=== PATIENT | female | born 1950 | race Caucasian/White ===

== ENCOUNTER 2024-03-26 18:13 | Inpatient (IN) | payer MEDICAID, MEDICARE ==
[~2024-03-26] VITALS: Ht 160 cm; Wt 65.8 kg
[~2024-03-26 18:13] MED LIST: BISA5TAB10 PO; CLOZ100T PO; IPRA0.2S18 IH; LEVA0.6320 IH; LEVO112T5 GT
[2024-03-26 20:25] LABS: APPEARANCE,URINE Clear (CLEAR); BILIRUBIN,URINE Negative (NEGATIVE); BLOOD, URINE Trace-intact Ery/uL (NEGATIVE); COLOR,URINE YELLOW (YELLOW); KETONES,URINE Negative (NEGATIVE); LEUKOCYTE ESTERASE ,URINE Negative (NEGATIVE); NITRITE, URINE Negative (NEGATIVE); PROTEIN,URINE Negative (NEGATIVE); UGLUCOSE Negative (NEGATIVE); UROBILINOGEN,URINE 0.2 EU/dL (0.2)
[2024-03-26 20:32] LABS: BASOPHILS # (AUTO) 0.1 K/uL (0.0-0.2); BASOPHILS % (AUTO) 0.8 % (0.0-2.0); EOSINOPHILS # (AUTO) 0.1 K/uL (0.0-0.7); EOSINOPHILS % (AUTO) 1.1 % (0.0-6.0); HEMATOCRIT 45 % (33-45); HEMOGLOBIN 15.2 g/dL (11.5-14.8); LYMPHOCYTES # (AUTO) 2.9 K/uL (0.8-4.8); MEAN CORPUSCULAR HEMOGLOBIN 33 PG (26.0-33.0); MEAN CORPUSCULAR HGB CONC 34 g/dl (31.0-36.0); MEAN CORPUSCULAR VOLUME 96 fL (82-100); MONOCYTES # (AUTO) 0.7 K/uL (0.1-1.30); NEUTROPHILS # (AUTO) 3.9 K/uL (1.8-8.9); NEUTROPHILS % (AUTO) 51.1 % (43.0-81.0); PLATELET COUNT (AUTO) 219 K/uL (150-450); RED BLOOD CELL COUNT(AUTO) 4.67 MIL/uL (4.0-5.2); RED CELL DISTRIBUTION WIDTH 13.1 % (11.5-15.0); WHITE BLOOD COUNT (AUTO) 7.6 K/uL (4.3-11.0)
[2024-03-26 20:39] LABS: AMPHETAMINE, URINE NEGATIVE (NEGATIVE); BARBITURATE, URINE NEGATIVE (NEGATIVE); BENZODIAZEPINE, URINE NEGATIVE (NEGATIVE); CANNABINOID, URINE NEGATIVE (NEGATIVE); COCCAINE, URINE NEGATIVE (NEGATIVE); OPIATE, URINE NEGATIVE (NEGATIVE); PHENCYCLIDINE SCREEN,URINE NEGATIVE (NEGATIVE)
[2024-03-26 20:40] LABS: CALCIUM, SERUM 9.3 mg/dL (8.5-10.1); CARBON DIOXIDE 27 mmol/L (21-32); CHLORIDE 110 mmol/L (98-107); CREATININE 0.7 mg/dL (0.6-1.3); GLUCOSE 101 mg/dL (74-106); POTASSIUM 4.2 mmol/L (3.5-5.1); SODIUM SERUM 142 mmol/L (136-145); UREA NITROGEN, BLOOD 22 mg/dL (7-18)
[2024-03-26 20:46] LABS: ALANINE AMINOTRANSFERASE 10 U/L (12-78); ALCOHOL, BLOOD < 3 mg/dL (0-10); ALKALINE PHOSPHATASE 68 U/L (46-116); ASPARTATE AMINOTRANSFERASE 10 U/L (15-37); BILIRUBIN,DIRECT 0.1 mg/dL (0.0-0.2); BILIRUBIN,TOTAL 0.3 mg/dL (0.2-1.0); SALICYLATE 2.5 mg/dL (2.8-20.0); TOTAL PROTEIN, SERUM 6.8 g/dL (6.4-8.2)
[2024-03-26 20:46] LABS: ADD URINE CULTURE NO; BACTERIA,URINE Few /HPF (None Seen); SQUAMOUS EPITHELIAL CELL,UR Few /HPF (None Seen); WBC,URINE 0-2 /HPF (0-3)
[2024-03-26 20:47] LABS: ACETAMINOPHEN <10 ug/ml (10-30)
[2024-03-26] MEDS ORDERED: LEVO175T7 PO (23:44)
[2024-03-26] MEDS ORDERED: DIVA500T2 PO (23:44)
[2024-03-26] MEDS ORDERED: OLAN10TA3 PO (23:44)
[2024-03-26] MEDS ORDERED: GABA-532 PO (23:44)
[2024-03-26] MEDS ORDERED: AMLO10TA4 PO (23:44)
[2024-03-26] MEDS ORDERED: PANT40TA49 PO (23:44)
[2024-03-26] MEDS ORDERED: QUET25TA PO (23:44)
[2024-03-26] MEDS ORDERED: LORA-259 PO (23:44)
[2024-03-27] MEDS ORDERED: MAG HYDROX/AL HYDROX/SIMETH 30 ML UDC PO PRN (01:30)
[2024-03-27] MEDS ORDERED: MAGNESIUM HYDROXIDE 30 ML UDC PO PRN (01:30)
[2024-03-27] MEDS ORDERED: Z GUARD REMEDY 4 OZ OINT TP PRN ×2 (01:30→06:00)
[2024-03-27] MEDS ORDERED: ZOLPIDEM TARTRATE 5 MG TABLET PO PRN ×2 (01:30)
[2024-03-27] MEDS: BLOOD SUGAR DIAGNOSTIC 1 EACH STRIP IN ONE (01:42)
[2024-03-27 01:58] VITALS: BP 125/77; TEMP 98; O2SAT 98
[2024-03-27 08:00] VITALS: BP 109/89; TEMP 97.8; O2SAT 96
[2024-03-27] MEDS: Z GUARD REMEDY 4 OZ OINT TP SCH (08:23)
[2024-03-27] MEDS ORDERED: NA P133E RC (08:28)
[2024-03-27] MEDS ORDERED: ACET325T53 PO (08:28)
[2024-03-27] MEDS ORDERED: MAGN400O6 PO (08:28)
[2024-03-27] MEDS ORDERED: BISA10SU11 RC (08:28)
[2024-03-27] MEDS ORDERED: TEMAZEPAM 7.5 MG CAPSULE PO PRN (09:30)
[2024-03-27] MEDS: clonazePAM 0.5 MG TABLET PO SCH (12:21)
[2024-03-27] MEDS: DIVALPROEX SODIUM 250 MG TABLET.DR PO SCH (13:07)
[2024-03-27 16:00] VITALS: BP_SYST 102; BP_SYST 124; BP_DIAS 71; BP_DIAS 77; TEMP 97.8; TEMP 98.7; O2SAT 97; O2SAT 98
[2024-03-27 20:22] VITALS: BP 124/68; TEMP 98.3; O2SAT 97
[2024-03-27] MEDS: risperiDONE 1 MG TABLET PO SCH (20:52)
[2024-03-28 08:00] VITALS: BP 100/79; TEMP 97.9; O2SAT 100
[2024-03-28] MEDS: AMLODIPINE BESYLATE 10 MG TABLET PO SCH (08:35)
[2024-03-28] MEDS: GABAPENTIN 100 MG CAPSULE PO SCH (08:37)
[2024-03-28] MEDS: LEVOTHYROXINE SODIUM 175 MCG TABLET PO SCH (09:27)
[2024-03-28 15:45] VITALS: BP 117/76; TEMP 97.8; O2SAT 98
[2024-03-28 20:31] VITALS: BP 111/71; TEMP 97.9; O2SAT 95
[2024-03-29 08:00] VITALS: BP 112/59; TEMP 98; O2SAT 97
[2024-03-29 12:55] LABS: BASOPHILS % (AUTO) 0.3 % (0.0-2.0); EOSINOPHILS # (AUTO) 0.1 K/uL (0.0-0.7); EOSINOPHILS % (AUTO) 1.2 % (0.0-6.0); HEMATOCRIT 41 % (33-45); HEMOGLOBIN 13.9 g/dL (11.5-14.8); LYMPHOCYTES % (AUTO) 36.7 % (20.0-44.0); MEAN CORPUSCULAR HEMOGLOBIN 32 PG (26.0-33.0); MEAN CORPUSCULAR HGB CONC 34 g/dl (31.0-36.0); MEAN CORPUSCULAR VOLUME 95 fL (82-100); MONOCYTES # (AUTO) 0.7 K/uL (0.1-1.30); MONOCYTES % (AUTO) 12.8 % (2.0-12.0); NEUTROPHILS # (AUTO) 2.7 K/uL (1.8-8.9); PLATELET COUNT (AUTO) 194 K/uL (150-450); RED BLOOD CELL COUNT(AUTO) 4.28 MIL/uL (4.0-5.2); RED CELL DISTRIBUTION WIDTH 13.2 % (11.5-15.0); WHITE BLOOD COUNT (AUTO) 5.5 K/uL (4.3-11.0)
[2024-03-29 13:33] LABS: ALANINE AMINOTRANSFERASE 12 U/L (12-78); ALBUMIN 2.5 g/dL (3.4-5.0); ALKALINE PHOSPHATASE 65 U/L (46-116); ASPARTATE AMINOTRANSFERASE 9 U/L (15-37); BILIRUBIN,TOTAL 0.3 mg/dL (0.2-1.0); CALCIUM, SERUM 8.6 mg/dL (8.5-10.1); CARBON DIOXIDE 26 mmol/L (21-32); CHLORIDE 110 mmol/L (98-107); CHOLESTEROL 152 mg/dL (<200); CREATININE 0.5 mg/dL (0.6-1.3); GLUCOSE 107 mg/dL (74-106); HDL CHOLESTEROL 40 mg/dL (40-60); LDL 78 mg/dL (0-99); POTASSIUM 4.2 mmol/L (3.5-5.1); SODIUM SERUM 143 mmol/L (136-145); TOTAL PROTEIN, SERUM 5.9 g/dL (6.4-8.2); TRIGLYCERIDES 143 mg/dL (30-150); UREA NITROGEN, BLOOD 18 mg/dL (7-18)
[2024-03-29 16:00] VITALS: BP 106/65; TEMP 98.1; O2SAT 98
[2024-03-29 21:07] VITALS: BP 96/74; TEMP 98.1; O2SAT 96
[2024-03-29] MEDS: risperiDONE 1 MG TABLET PO SCH (21:43)
[2024-03-30 08:00] VITALS: BP 113/74; TEMP 98.7; O2SAT 96
[2024-03-30 16:00] VITALS: BP 110/65; TEMP 98.7; O2SAT 97
[2024-03-30 21:00] VITALS: BP 110/78; TEMP 98; O2SAT 98
[2024-03-31 08:00] VITALS: BP 115/74; TEMP 98.1; O2SAT 98
[2024-03-31 20:00] VITALS: BP 99/66; TEMP 98.3; O2SAT 95
[2024-03-31] MEDS: risperiDONE 1 MG TABLET PO SCH (21:33)
[2024-03-31] MEDS: DIVALPROEX SODIUM 250 MG TABLET.DR PO SCH (21:33)
[2024-04-01 08:00] VITALS: BP 119/92; TEMP 97.8; O2SAT 96
[2024-04-01] MEDS: DIVALPROEX SODIUM 250 MG TABLET.DR PO SCH (08:50)
[2024-04-01 16:00] VITALS: BP 121/96; TEMP 97.8; O2SAT 96
[2024-04-01 16:16] VITALS: BP 119/92; TEMP 97.8; O2SAT 96
[2024-04-01 16:51] VITALS: BP 119/92; TEMP 97.8; O2SAT 96
[2024-04-01 20:00] VITALS: BP 115/86; TEMP 98.2; O2SAT 96
[2024-04-02 08:19] VITALS: BP 102/66; TEMP 97.8; O2SAT 96
[2024-04-02 16:18] VITALS: BP_SYST 105; BP_SYST 89; BP_DIAS 66; BP_DIAS 80; TEMP 98.2; O2SAT 100
[2024-04-02 20:00] VITALS: BP 111/89; TEMP 98.4; O2SAT 100
[2024-04-03 08:00] VITALS: BP 132/72; TEMP 97.7; O2SAT 99
[2024-04-03 16:00] VITALS: BP 94/56; TEMP 97.9; O2SAT 98
[2024-04-03 20:39] VITALS: BP 107/73; TEMP 97.9; O2SAT 98
[2024-04-03] MEDS: risperiDONE 1 MG TABLET PO SCH (21:30)
[2024-04-04 08:00] VITALS: BP 146/67; TEMP 97.9; O2SAT 96
[2024-04-04] MEDS: ACETAMINOPHEN 325 MG TABLET PO PRN (15:01)
[2024-04-04 16:04] VITALS: BP 124/72; TEMP 97.8; O2SAT 97
[2024-04-04 20:21] VITALS: BP 117/68; TEMP 98.1; O2SAT 100
[2024-04-05 08:00] VITALS: BP 133/79; TEMP 97.7; O2SAT 98
[2024-04-05 16:00] VITALS: BP 102/76; TEMP 97.9; O2SAT 98
[2024-04-05] MEDS: DIVALPROEX SODIUM 250 MG TABLET.DR PO SCH (20:19)
[2024-04-05 21:16] VITALS: BP 118/90; TEMP 97.8; O2SAT 98
[2024-04-06 08:00] VITALS: BP 131/90; TEMP 98.1; O2SAT 98
[2024-04-06 16:00] VITALS: BP 113/74; TEMP 98.7; O2SAT 97
[2024-04-06] MEDS: clonazePAM 0.5 MG TABLET PO SCH (20:01)
[2024-04-06] MEDS: risperiDONE 1 MG TABLET PO SCH (20:41)
[2024-04-06 21:08] VITALS: BP 135/97; TEMP 98.7; O2SAT 97
[2024-04-07 08:00] VITALS: BP 120/89; TEMP 98; O2SAT 96
[2024-04-07] MEDS: risperiDONE 1 MG TABLET PO SCH (08:18)
[2024-04-07 16:00] VITALS: BP 102/79; TEMP 98.7; O2SAT 100
[2024-04-07 20:27] VITALS: BP 110/79; TEMP 98.5; O2SAT 96
[2024-04-08 08:00] VITALS: BP 103/73; TEMP 97.6; O2SAT 100
[2024-04-08] MEDS: risperiDONE 1 MG TABLET PO SCH (09:11)
[2024-04-08 15:53] VITALS: BP 108/74; TEMP 98; O2SAT 98
[2024-04-08 20:00] VITALS: BP 138/68; TEMP 98.3; O2SAT 99
[2024-04-09 08:00] VITALS: BP 116/78; TEMP 97.9; O2SAT 95
[2024-04-09 08:34] VITALS: BP 116/78
== END 2024-04-09 13:15 | DRG 885 ==
LOC: ER 18:13 → GPS 23:35
PROVIDERS: ADMIT Psychiatry & Neurology Psychiatry; ATTEND Internal Medicine
DX: F25.9 Schizoaffective disorder, unspecified (principal); E44.0 Moderate protein-calorie malnutrition; G93.40 Encephalopathy, unspecified; F29 Unspecified psychosis not due to a substance or known physiological condition; N18.9 Chronic kidney disease, unspecified; E78.5 Hyperlipidemia, unspecified; E03.9 Hypothyroidism, unspecified; I12.9 Hypertensive chronic kidney disease with stage 1 through stage 4 chronic kidney disease, or unspecified chronic kidney disease; F32.A Depression, unspecified; E88.09 Other disorders of plasma-protein metabolism, not elsewhere classified; F41.9 Anxiety disorder, unspecified; Z87.891 Personal history of nicotine dependence; J44.9 Chronic obstructive pulmonary disease, unspecified; Z20.822 Contact with and (suspected) exposure to COVID-19; F39 Unspecified mood [affective] disorder; Z73.6 Limitation of activities due to disability; Z68.25 Body mass index [BMI] 25.0-25.9, adult; Z79.899 Other long term (current) drug therapy; Z91.199 Patient's noncompliance with other medical treatment and regimen due to unspecified reason; F06.70 Mild neurocognitive disorder due to known physiological condition without behavioral disturbance
CPT/HCPCS: 36415; 80048-TC; 80053-TC; 80061-TC; 80076-TC; 80164-TC; 81001; 85025-TC; 87081-TC; 97110-TC; 97112-TC; 97530-TC; G0480

== ENCOUNTER 2024-10-08 01:26 | Inpatient (IN) | payer MEDICARE ==
[~2024-10-08] VITALS: Ht 160 cm; Wt 59.0 kg
[~2024-10-08 01:26] MED LIST changes: +ACET325T53 PO; +AMLO10TA4 PO; +BISA10SU11 RC; -BISA5TAB10 PO; -CLOZ100T PO; +GABA-532 PO; -IPRA0.2S18 IH; -LEVA0.6320 IH; -LEVO112T5 GT; +LEVO175T7 PO; +MAGN400O6 PO; +NA P133E RC; +PANT40TA49 PO
[2024-10-08] MEDS ORDERED: ZOLPIDEM TARTRATE 5 MG TABLET PO PRN ×2 (02:30)
[2024-10-08] MEDS ORDERED: QUETIAPINE FUMARATE 25 MG TABLET PO PRN (02:30)
[2024-10-08] MEDS ORDERED: MAG HYDROX/AL HYDROX/SIMETH 30 ML UDC PO PRN (02:30)
[2024-10-08] MEDS ORDERED: MAGNESIUM HYDROXIDE 30 ML UDC PO PRN ×2 (02:30→03:30)
[2024-10-08] MEDS ORDERED: ACETAMINOPHEN 325 MG TABLET PO PRN (02:30)
[2024-10-08] MEDS: BLOOD SUGAR DIAGNOSTIC 1 EACH STRIP IN ONE (02:30)
[2024-10-08] MEDS ORDERED: DIVA-78 PO (02:35)
[2024-10-08] MEDS ORDERED: LORA-259 PO (02:36)
[2024-10-08] MEDS ORDERED: OLAN10TA3 PO (02:37)
[2024-10-08] MEDS ORDERED: BISACODYL SUPP (10 MG) 10 MG/SUPP.RECT SUPP.RECT RC PRN (03:30)
[2024-10-08] MEDS: LEVOTHYROXINE SODIUM 175 MCG TABLET PO SCH (07:36)
[2024-10-08 08:00] VITALS: BP 103/67; TEMP 97.7; O2SAT 95
[2024-10-08 08:48] VITALS: BP 103/66
[2024-10-08] MEDS: AMLODIPINE BESYLATE 10 MG TABLET PO SCH (08:48)
[2024-10-08] MEDS: PANTOPRAZOLE 40 MG TABLET.DR PO SCH (08:49)
[2024-10-08] MEDS ORDERED: MAG30ORA PO (18:09)
[2024-10-08] MEDS ORDERED: ZOLP5TAB2 PO (18:09)
[2024-10-08] MEDS ORDERED: QUET25TA PO (18:09)
== END 2024-10-08 15:00 | disposition short-term general hospital (02) | DRG 885 ==
LOC: GPS 01:28
PROVIDERS: ADMIT Psychiatry & Neurology Psychiatry
DX: F25.9 Schizoaffective disorder, unspecified (principal); Z91.51 Personal history of suicidal behavior; F17.210 Nicotine dependence, cigarettes, uncomplicated; Z88.1 Allergy status to other antibiotic agents; Z91.012 Allergy to eggs; Z91.013 Allergy to seafood; Z88.8 Allergy status to other drugs, medicaments and biological substances; Z91.018 Allergy to other foods; Z91.148 Patient's other noncompliance with medication regimen for other reason; R41.89 Other symptoms and signs involving cognitive functions and awareness; M21.752 Unequal limb length (acquired), left femur
CPT/HCPCS: 97110-TC; 97530-TC

== ENCOUNTER 2024-10-08 16:35 | Inpatient (IN) | payer MEDICARE ==
[~2024-10-08] VITALS: Ht 154.9 cm; Wt 62.8 kg
[2024-10-08 15:45] VITALS: BP 114/98; TEMP 97.5; O2SAT 97
[~2024-10-08 16:35] MED LIST changes: +DIVA-78 PO; +LORA-259 PO; +OLAN10TA3 PO
[2024-10-08] MEDS ORDERED: MAG HYDROX/AL HYDROX/SIMETH 30 ML UDC PO PRN (17:30)
[2024-10-08] MEDS ORDERED: ONDANSETRON HCL/PF 4 MG/2 ML VIAL IVP PRN (17:30)
[2024-10-08] MEDS ORDERED: ZOLPIDEM TARTRATE 5 MG TABLET PO PRN (17:30)
[2024-10-08] MEDS ORDERED: Z GUARD REMEDY 4 OZ OINT TP PRN (17:30)
[2024-10-08] MEDS ORDERED: MAGNESIUM HYDROXIDE 30 ML UDC PO PRN (17:30)
[2024-10-08] MEDS ORDERED: MAG30ORA PO (18:09)
[2024-10-08] MEDS ORDERED: QUET25TA PO (18:09)
[2024-10-08] MEDS ORDERED: ZOLP5TAB2 PO (18:09)
[2024-10-08] MEDS: IV 1/2NS 1000 ML 1,000 ML IV PRN (18:13)
[2024-10-08 18:34] LABS: CALCIUM, SERUM 8.9 mg/dL (8.5-10.1); CREATININE 0.8 mg/dL (0.6-1.3); GLUCOSE 100 mg/dL (74-106); UREA NITROGEN, BLOOD 17 mg/dL (7-18)
[2024-10-08 18:51] LABS: CARBON DIOXIDE 25 mmol/L (21-32); CHLORIDE 106 mmol/L (98-107); POTASSIUM 4.2 mmol/L (3.5-5.1); SODIUM SERUM 138 mmol/L (136-145)
[2024-10-08] MEDS: ACETAMINOPHEN 325 MG TABLET PO PRN (19:54)
[2024-10-08 20:00] VITALS: BP 120/95; TEMP 98.1; O2SAT 93
[2024-10-08 23:24] LABS: BASOPHILS # (AUTO) 0.1 K/uL (0.0-0.2); BASOPHILS % (AUTO) 0.8 % (0.0-2.0); EOSINOPHILS % (AUTO) 0.4 % (0.0-6.0); HEMATOCRIT 36 % (33-45); HEMOGLOBIN 12.4 g/dL (11.5-14.8); LYMPHOCYTES # (AUTO) 2.3 K/uL (0.8-4.8); LYMPHOCYTES % (AUTO) 28.9 % (20.0-44.0); MEAN CORPUSCULAR HEMOGLOBIN 33 PG (26.0-33.0); MEAN CORPUSCULAR HGB CONC 34 g/dl (31.0-36.0); MEAN CORPUSCULAR VOLUME 96 fL (82-100); MONOCYTES # (AUTO) 0.7 K/uL (0.1-1.30); MONOCYTES % (AUTO) 8.6 % (2.0-12.0); NEUTROPHILS # (AUTO) 4.8 K/uL (1.8-8.9); NEUTROPHILS % (AUTO) 61.3 % (43.0-81.0); PLATELET COUNT (AUTO) 240 K/uL (150-450); RED CELL DISTRIBUTION WIDTH 14.1 % (11.5-15.0); WHITE BLOOD COUNT (AUTO) 7.9 K/uL (4.3-11.0)
[2024-10-08] MEDS: ENOXAPARIN SODIUM 40 MG/0.4 ML DISP.SYRIN SQ SCH (23:34)
[2024-10-09] VITALS: BP 113/70; TEMP 98.4; O2SAT 96
[2024-10-09 04:00] VITALS: BP 119/81; TEMP 98.4; O2SAT 93
[2024-10-09] MEDS: PANTOPRAZOLE 40 MG TABLET.DR PO SCH (07:59)
[2024-10-09 08:00] VITALS: BP 123/81; TEMP 97.5; O2SAT 96
[2024-10-09 08:04] LABS: CALCIUM, SERUM 8.7 mg/dL (8.5-10.1); CREATININE 0.5 mg/dL (0.6-1.3); PHOSPHORUS 3.6 mg/dL (2.5-4.9); POTASSIUM 4.2 mmol/L (3.5-5.1)
[2024-10-09 08:07] LABS: BASOPHILS % (AUTO) 0.3 % (0.0-2.0); EOSINOPHILS # (AUTO) 0.1 K/uL (0.0-0.7); EOSINOPHILS % (AUTO) 0.7 % (0.0-6.0); HEMATOCRIT 40 % (33-45); HEMOGLOBIN 13.8 g/dL (11.5-14.8); LYMPHOCYTES # (AUTO) 2.2 K/uL (0.8-4.8); LYMPHOCYTES % (AUTO) 30.8 % (20.0-44.0); MEAN CORPUSCULAR HEMOGLOBIN 33 PG (26.0-33.0); MEAN CORPUSCULAR HGB CONC 34 g/dl (31.0-36.0); MEAN CORPUSCULAR VOLUME 96 fL (82-100); MONOCYTES # (AUTO) 0.6 K/uL (0.1-1.30); MONOCYTES % (AUTO) 8.8 % (2.0-12.0); NEUTROPHILS # (AUTO) 4.3 K/uL (1.8-8.9); NEUTROPHILS % (AUTO) 59.4 % (43.0-81.0); PLATELET COUNT (AUTO) 262 K/uL (150-450); RED BLOOD CELL COUNT(AUTO) 4.19 MIL/uL (4.0-5.2); RED CELL DISTRIBUTION WIDTH 14.2 % (11.5-15.0); WHITE BLOOD COUNT (AUTO) 7.2 K/uL (4.3-11.0)
[2024-10-09 08:31] LABS: THYROID STIMULATING HORMONE 5.13 uIU/mL (0.358-3.74)
[2024-10-09 13:09] LABS: LYMPHOCYTES % (MANUAL) 28 % (16-48); MONOCYTES % (MANUAL) 5 % (0-11.0); NEUTROPHILS % (MANUAL) 67 (42-76); PLATELET ESTIMATE ADEQUATE
[2024-10-09 16:00] VITALS: BP 122/74; TEMP 98.4; O2SAT 96
[2024-10-09] MEDS: HYDROCODONE/APAP 5/325MG TABLET PO PRN (18:00)
[2024-10-09] MEDS ORDERED: risperiDONE 1 MG TABLET PO PRN (18:30)
[2024-10-09 20:55] VITALS: BP 112/88; TEMP 97.5; O2SAT 98
[2024-10-09] MEDS: TRAZODONE 50 MG TABLET PO SCH (21:09)
[2024-10-10 07:28] LABS: BASOPHILS % (AUTO) 0.4 % (0.0-2.0); EOSINOPHILS # (AUTO) 0.1 K/uL (0.0-0.7); EOSINOPHILS % (AUTO) 1.5 % (0.0-6.0); HEMATOCRIT 39 % (33-45); HEMOGLOBIN 13.2 g/dL (11.5-14.8); LYMPHOCYTES # (AUTO) 2.3 K/uL (0.8-4.8); LYMPHOCYTES % (AUTO) 27.8 % (20.0-44.0); MEAN CORPUSCULAR HEMOGLOBIN 33 PG (26.0-33.0); MEAN CORPUSCULAR HGB CONC 34 g/dl (31.0-36.0); MEAN CORPUSCULAR VOLUME 98 fL (82-100); MONOCYTES # (AUTO) 0.8 K/uL (0.1-1.30); MONOCYTES % (AUTO) 9.8 % (2.0-12.0); NEUTROPHILS # (AUTO) 5.1 K/uL (1.8-8.9); NEUTROPHILS % (AUTO) 60.5 % (43.0-81.0); PLATELET COUNT (AUTO) 235 K/uL (150-450); RED BLOOD CELL COUNT(AUTO) 3.95 MIL/uL (4.0-5.2); RED CELL DISTRIBUTION WIDTH 14.4 % (11.5-15.0); WHITE BLOOD COUNT (AUTO) 8.3 K/uL (4.3-11.0)
[2024-10-10 07:41] LABS: ALANINE AMINOTRANSFERASE < 6 U/L (12-78); ALBUMIN 2.3 g/dL (3.4-5.0); ALKALINE PHOSPHATASE 67 U/L (46-116); ASPARTATE AMINOTRANSFERASE 14 U/L (15-37); BILIRUBIN,TOTAL 0.4 mg/dL (0.2-1.0); CALCIUM, SERUM 8.5 mg/dL (8.5-10.1); CARBON DIOXIDE 20 mmol/L (21-32); CHLORIDE 110 mmol/L (98-107); CREATININE 0.4 mg/dL (0.6-1.3); GLUCOSE 77 mg/dL (74-106); PHOSPHORUS 3.6 mg/dL (2.5-4.9); POTASSIUM 4.1 mmol/L (3.5-5.1); SODIUM SERUM 141 mmol/L (136-145); TOTAL PROTEIN, SERUM 7.2 g/dL (6.4-8.2); UREA NITROGEN, BLOOD 13 mg/dL (7-18)
[2024-10-10 08:00] VITALS: BP 134/86; TEMP 97.9; O2SAT 97
[2024-10-10] MEDS: busPIRone 5 MG TABLET PO SCH (08:56)
[2024-10-10] MEDS: DIVALPROEX SODIUM 250 MG TABLET.DR PO SCH (08:56)
[2024-10-10] MEDS: risperiDONE 1 MG TABLET PO SCH (08:57)
[2024-10-10 16:00] VITALS: BP 117/88; TEMP 97.9; O2SAT 95
[2024-10-10 20:44] VITALS: BP 107/87; TEMP 98.2; O2SAT 95
[2024-10-11 07:44] LABS: ALBUMIN 2.4 g/dL (3.4-5.0); BILIRUBIN,TOTAL 0.4 mg/dL (0.2-1.0); CALCIUM, SERUM 8.6 mg/dL (8.5-10.1); CREATININE 0.5 mg/dL (0.6-1.3); MAGNESIUM 1.7 mg/dL (1.8-2.4); PHOSPHORUS 3.7 mg/dL (2.5-4.9); POTASSIUM 3.8 mmol/L (3.5-5.1); TOTAL PROTEIN, SERUM 7.4 g/dL (6.4-8.2)
[2024-10-11 07:48] LABS: BASOPHILS % (AUTO) 0.5 % (0.0-2.0); EOSINOPHILS % (AUTO) 0.9 % (0.0-6.0); HEMATOCRIT 39 % (33-45); HEMOGLOBIN 13.1 g/dL (11.5-14.8); LYMPHOCYTES % (AUTO) 19.6 % (20.0-44.0); MEAN CORPUSCULAR HEMOGLOBIN 32 PG (26.0-33.0); MEAN CORPUSCULAR HGB CONC 34 g/dl (31.0-36.0); MEAN CORPUSCULAR VOLUME 96 fL (82-100); PLATELET COUNT (AUTO) 245 K/uL (150-450); RED BLOOD CELL COUNT(AUTO) 4.07 MIL/uL (4.0-5.2); RED CELL DISTRIBUTION WIDTH 14.2 % (11.5-15.0); WHITE BLOOD COUNT (AUTO) 10.8 K/uL (4.3-11.0)
[2024-10-11 07:49] LABS: BASOPHILS # (AUTO) 0.1 K/uL (0.0-0.2); EOSINOPHILS # (AUTO) 0.1 K/uL (0.0-0.7); LYMPHOCYTES # (AUTO) 2.1 K/uL (0.8-4.8); MONOCYTES # (AUTO) 0.8 K/uL (0.1-1.30); NEUTROPHILS # (AUTO) 7.8 K/uL (1.8-8.9)
[2024-10-11 08:00] VITALS: BP 126/82; TEMP 97.7; O2SAT 94
[2024-10-11] MEDS: MAGNESIUM OXIDE 400 MG TABLET PO ONE (09:33)
[2024-10-11 16:00] VITALS: BP 128/89; TEMP 97.6; O2SAT 97
[2024-10-11] MEDS: clonazePAM 0.5 MG TABLET PO SCH (17:59)
== END 2024-10-11 18:30 | DRG 566 ==
LOC: MED 16:35 → TELE 10-09 00:10 → MED 10-09 22:52
DX: M84.452 Pathological fracture, left femur (principal); F03.90 Unspecified dementia, unspecified severity, without behavioral disturbance, psychotic disturbance, mood disturbance, and anxiety; E03.9 Hypothyroidism, unspecified; E78.5 Hyperlipidemia, unspecified; I12.9 Hypertensive chronic kidney disease with stage 1 through stage 4 chronic kidney disease, or unspecified chronic kidney disease; N18.9 Chronic kidney disease, unspecified; J44.9 Chronic obstructive pulmonary disease, unspecified; F29 Unspecified psychosis not due to a substance or known physiological condition; K59.00 Constipation, unspecified; F39 Unspecified mood [affective] disorder; X58.XXXD Exposure to other specified factors, subsequent encounter; Z74.01 Bed confinement status; F25.8 Other schizoaffective disorders
CPT/HCPCS: 36415; 73502; 73700-TC; 80048-TC; 80053-TC; 80061-TC; 83735-TC; 84100-TC; 84443-TC; 85025-TC; 87081-TC; 93307-TC; G0378; J1650; J3490